=== PATIENT | female | born 1960 | race Native Hawaiian/Other Pacific Islander ===

== ENCOUNTER 2017-06-10 10:37 | Emergency (ER) | payer OTHER ==
[2017-06-10] MEDS ORDERED: Bacitracin 500 Units/gm Oint Foilpak UD TOP ONE (11:26)
--- NOTE | 2017-06-10 11:29 | C.PDOC ---
History Of Present Illness 57 yo female c/o b/l knee and left wrist pain s/p trip and fall just prior to arrival. Pt notes [place] was [place] on [place] walk, tripped and fell on her hands and knees. No head trauma. No change in sensation. Able to ambulate. Right hand dominant Time Seen by Provider: 06/10/17 11:08 Chief Complaint (Nursing): Lower Extremity Problem/Injury History Per: Patient History/Exam Limitations: no limitations Onset/Duration Of Symptoms: Mins Current Symptoms Are (Timing): Still Present Past Medical History Vital Signs: Last Vital Signs Temp 98.0 F 06/10/17 11:54 Pulse 82 06/10/17 11:54 Resp 16 06/10/17 11:54 BP 138/94 H 06/10/17 11:54 Pulse Ox 99 06/10/17 11:54 Family History: States: Unknown Family Hx - Social History Hx Alcohol Use: No Hx Substance Use: No - Immunization History Hx Tetanus Toxoid Vaccination: No Hx Influenza Vaccination: No Hx Pneumococcal Vaccination: No Review Of Systems Except As Marked, All Systems Reviewed And Found Negative. Physical Exam - Physical Exam Appears: Well, Non-toxic, No Acute Distress Skin: Warm, Dry, Other ((+) abrasion to the right knee and left wrist) Head: Atraumatic, Normacephalic Eye(s): bilateral: Normal Inspection, EOMI Nose: Normal Oral Mucosa: Moist Neck: Normal, Normal ROM, Supple Chest: Symmetrical Cardiovascular: Rhythm Regular Respiratory: Normal Breath Sounds Back: Normal Inspection Extremity: Normal ROM, Tenderness ((+) mild tenderness to the left wrist , (+) ttp over the right knee abrasion), No Pedal Edema, No Calf Tenderness, Capillary Refill (<2 sec), Swelling (dorsal ulnar aspect of left wrist) Pulses: Left Radial: Normal, Right Radial: Normal, Left Dorsalis Pedis: Normal, Right Dorsalis Pedis: Normal Neurological/Psych: Oriented x3, Normal Speech, Normal Motor, Normal Sensation Gait: Steady ED Course And Treatment O2 Sat by Pulse Oximetry: 100 Progress Note: Pt was offered XR, she declined. Wound cleansed and dressed. Bacitracin applied. WRist immobilizer applied by furniture repair technician. Instructed RICE and follow up with PMD in 1-2 days. Disposition - Disposition Disposition: HOME/ ROUTINE Disposition Time: 11:36 Condition: STABLE Additional Instructions: Rest, ice, and elevate the area. Apply antibiotic ointment and watch for signs of infection including redness, swelling and discharge. Prescriptions: Bacitracin OINT 1 applic TP BID #1 tube Instructions: Abrasion (ED) Forms: [facility] (Mal[place]ian) - Clinical Impression Clinical Impression: Knee abrasion, Wrist sprain
[2017-06-10] MEDS ORDERED: Bacitracin 500 Units/gm Oint Foilpak UD ONE (11:31)
[2017-06-10 11:55] VITALS: BP 138/94; PULSE 82; RESP 16; TEMP 98
[2017-06-10 12:31] VITALS: O2SAT 100
== END 2017-06-10 12:13 | disposition home or self-care (01) ==
LOC: C.ER 10:37
DX: S80.211A Abrasion, right knee, initial encounter (principal); S63.502A Unspecified sprain of left wrist, initial encounter; W01.0XXA Fall on same level from slipping, tripping and stumbling without subsequent striking against object, initial encounter; Y92.410 Unspecified street and highway as the place of occurrence of the external cause